=== PATIENT | male | born 1965 | race Caucasian/White ===

== ENCOUNTER → 2016-11-13 | Outpatient (CLI) | payer BC, OTHER ==
[~2016-11-13] MED LIST: ATOR1TAB19 PO; FISH1000 PO; LEVO150T7 PO; MELO7.5T6 PO; MOVE1TAB PO; OMEP40CA2 PO
--- NOTE | 2016-11-13 10:58 | REP ---
Clinical: Reflux disease. Comparison: none. Technique: PA and lateral. Findings: The mediastinum and cardiac silhouette are normal. The lung hernadez are clear and without acute consolidation, effusion, or pneumothorax. The skeletal structures are intact and normal. Impression: 1. No acute cardiopulmonary process. Signed by Davi Walls MD 11/13/2016 10:49 A
[2016-11-13 11:06] LABS: MEAN CORPUSCULAR HGB CONC 34.9 g/dl (32.0-36.5); RED CELL DISTRIBUTION WIDTH 12.5 % (11.5-14.5); WHITE BLOOD COUNT 6.8 K/mm3 (4.0-10.0)
[2016-11-13 11:07] LABS: INR 0.91
[2016-11-13 11:16] LABS: ALBUMIN 3.7 GM/DL (3.2-5.2); ALBUMIN/GLOBULIN RATIO 1.09 (1.00-1.93); ALKALINE PHOSPHATASE 95 U/L (45-117); ALT/SGPT 79 U/L (12-78); ANION GAP 8 MEQ/L (8-16); AST/SGOT 41 U/L (15-37); BILIRUBIN,TOTAL 0.8 MG/DL (0.2-1.0); BLOOD UREA NITROGEN 18 MG/DL (7-18); CALCIUM LEVEL 8.9 MG/DL (8.5-10.1); CARBON DIOXIDE LEVEL 27 MEQ/L (21-32); CHLORIDE LEVEL 106 MEQ/L (98-107); CREATININE FOR GFR 1.05 MG/DL (0.70-1.30); GLOMERULAR FILTRATION RATE > 60.0 (>56); GLUCOSE, FASTING 82 MG/DL (70-105); POTASSIUM SERUM 4.2 MEQ/L (3.5-5.1); SODIUM LEVEL 141 MEQ/L (136-145); TOTAL PROTEIN 7.1 GM/DL (6.4-8.2)
--- NOTE | 2016-11-13 13:52 | ECGEPIP ---
Stationary ECG Study [facility] Test Date: 2016-11-13 Pat Name: DALIA REGALADO Department: Room: - Gender: M [employer] Associate: GABRIELA : 1965 Requested By: Vikas Jeff Order Number: [id number] Reading MD: Khai Whittington Measurements Intervals Andrews Rate: 62 P: 39 AZ: 174 QRS: -14 QRSD: 97 T: 18 QT: 382 QTc: 390 Interpretive Statements SINUS RHYTHM VOLTAGE CRITERIA FOR LVH No prior tracing for comparison Electronically Signed On 11-13-2016 13:52:29 EDT by Khai Whittington
== END ==
LOC: M ADMPAT 09:31
PROVIDERS: ATTEND Orthopaedic Surgery
DX: M17.9 Osteoarthritis of knee, unspecified (principal)

== ENCOUNTER 2016-11-28 10:52 | Inpatient (IN) | payer BC, OTHER ==
[2016-11-13 10:37] VITALS: BP 126/90
--- NOTE | 2016-11-22 09:51 | HPE ---
DATE OF ADMISSION: 11/28/2016 HISTORY OF PRESENT ILLNESS: This is a pleasant male with continuing symptomatic left knee osteoarthritis. He has consented for a left total knee arthroplasty per Dr. Tomer Espinoza. Medical optimization was scheduled with Dr. Fatima last Sunday. I am awaiting optimization note. X-rays are consistent with advanced osteoarthritis. ALLERGIES: None known to drugs. MEDICATIONS (includes): - omeprazole 40 mg one pill twice daily - levothyroxine 115 mcg one pill daily - atorvastatin 10 mg one pill daily - meloxicam 7.5 mg one pill twice daily - Move Free two pills daily - fish oil two pills daily MEDICAL PROBLEM LIST (includes): 1. osteoarthritis. 2. Gastroesophageal reflux disease. 3. Thyroid disease. 4. Hypercholesteremia. SURGICAL HISTORY (positive for): 1. Left knee arthroscopic procedure. 2. A testicle removed. SOCIAL HISTORY: He does not smoke and denies excessive ethanol intake. FAMILY HISTORY: Positive for heart disease, hypertension and cancer. REVIEW OF SYSTEMS: The patient denies chest pain, shortness of breath, dyspnea on exertion, fever, chills, malaise, upper respiratory or urinary tract symptoms. PHYSICAL EXAMINATION: Height is 68 inches, weight 180, temperature 97.6. He is a pleasant well-developed, well-nourished white male in no acute distress. He is alert and oriented times three. Mood and affect are appropriate. He is ambulating with favoring of the left lower extremity. No gross antalgia about the left knee. The left knee examined and not effused, ecchymotic or erythematous and benign and noninfectious looking. He has a left knee varus osteoarthritic alignment with positive medial joint line tenderness and crepitance about the knee through flexion and extension. It is otherwise stable about the collateral ligaments. Patellar and quad tendons without palpable defects. Patellofemoral joint (PFJ) is congruent, static and dynamic. No popliteal fossa mass or pain. Left hip range of motion is not limited or irritable through internal or external range of motion. No palpable defects or pain about the patella or quad tendons. He could do a straight leg raise. Compartments of his left lower extremity are soft, nontender to palpation and grossly intact to light touch. Negative calf tenderness, Homans' sign or palpable cords. LABS: Were reviewed. Nasal and sinus culture showed moderate Staphylococcus aureus which will be treated with Bactroban and Hibiclens wash. Electrocardiogram (EKG) as read by Dr. Khai Whittington showed sinus rhythm. Chest x-ray with no acute cardiopulmonary process as read by Dr. Walls on 11/13/2016. AST/SGOT was 41. ALT/SGPT 79. Remaining labs were unremarkable. Urine culture no growth. IMPRESSION: 1. Symptomatic left knee osteoarthritis. 2. The patient consented for a left total knee arthroplasty per Dr. Tomer Espinoza. 3. Medical optimization was performed last Sunday by Dr. Fatima, we awaiting his clearance note. 4. On-call to operating room (OR), 2 grams IV Kefzol in OR. 5. Sequential compression device (SCD) and thromboembolic deterrent stockings (TEDS) in OR. 6. Bactroban and Hibiclens wash per positive moderate nasal and sinus Staphylococcus. MTDD
[~2016-11-28] VITALS: Ht 172.7 cm; Wt 81.7 kg
[2016-11-28] MEDS ORDERED: LR 1,000 ML IV SCH ×3 (11:00→16:15)
[2016-11-28] MEDS ORDERED: ceFAZolin 2 GM/D5W 50 ML IV BAG (J0690) As Ordered ONE (11:08)
[2016-11-28] MEDS ORDERED: ACETAMINOPHEN 500 MG TAB PO ONE (11:15)
[2016-11-28] MEDS ORDERED: ONDANSETRON 4MG/2ML VIAL (J2405) As Ordered ONE (12:18)
[2016-11-28] MEDS ORDERED: fentaNYL 100 MCG/2 ML INJECTION (J3010) As Ordered ONE ×3 (12:18→13:27)
[2016-11-28] MEDS ORDERED: LIDOCAINE 2% INJ 100 MG/5 ML SDV (FOR ANES.) As Ordered ONE (12:18)
[2016-11-28] MEDS ORDERED: MIDAZOLAM INJ 2 MG/2 ML VIAL (J2250) As Ordered ONE ×2 (12:18→12:27)
[2016-11-28] MEDS ORDERED: PROPOFOL 500 MG/50 ML VIAL As Ordered ONE (12:19)
[2016-11-28] MEDS ORDERED: ceFAZolin 1GM INJ (J0690) As Ordered ONE (12:29)
[2016-11-28] MEDS ORDERED: TRANEXAMIC ACID 100 MG/ML 10ML VIAL As Ordered ONE (12:30)
[2016-11-28] MEDS ORDERED: BUPIVACAINE HCL 0.5% 10 ML VIAL As Ordered ONE (12:31)
[2016-11-28] MEDS ORDERED: EPINEPHrine INJ 1 MG/ML 1ML AMP As Ordered ONE (12:31)
[2016-11-28] MEDS ORDERED: MIDAZOLAM INJ 2 MG/2 ML VIAL (J2250) IV ONE (13:00)
[2016-11-28] MEDS ORDERED: fentaNYL 100 MCG/2 ML INJECTION (J3010) IV ONE (13:00)
[2016-11-28] MEDS ORDERED: BUPIVACAINE HCL 0.25% 10 ML VIAL As Ordered ONE (13:27)
[2016-11-28] MEDS ORDERED: BUPIVACAINE HCL 0.25% 30 ML VIAL As Ordered ONE (13:27)
[2016-11-28] MEDS ORDERED: METOCLOPRAMIDE INJ 10MG/2ML VIAL (J2765) As Ordered ONE (14:27)
[2016-11-28] MEDS ORDERED: dexameTHASONE 4 MG/ML 1ML VIAL (J1100) As Ordered ONE (14:29)
[2016-11-28] MEDS ORDERED: MORPHINE 1MG/ML IN 0.9% NACL 100ML IV BAG As Ordered ONE (15:36)
[2016-11-28] MEDS ORDERED: FLEET ENEMA PR PRN (16:15)
[2016-11-28] MEDS ORDERED: METOCLOPRAMIDE INJ 10MG/2ML VIAL (J2765) IV PRN (16:15)
[2016-11-28] MEDS ORDERED: MEPERIDINE INJ 25 MG/ML VIAL (J2175) IV PRN (16:15)
[2016-11-28] MEDS ORDERED: fentaNYL 100 MCG/2 ML INJECTION (J3010) IV PRN (16:15)
[2016-11-28] MEDS ORDERED: PERCOCET 5MG/325MG TAB PO PRN (16:15)
[2016-11-28] MEDS ORDERED: ONDANSETRON 4MG/2ML VIAL (J2405) IV PRN ×2 (16:15→16:30)
[2016-11-28] MEDS ORDERED: PATIENT IS CURRENTLY ON AN ON-Q PAIN BUSTER PAIN RELIEF SYSTEM XX SCH (16:15)
[2016-11-28] MEDS ORDERED: ACETAMINOPHEN TAB 650MG DOSE (2X325MG) PO PRN (16:15)
[2016-11-28] MEDS ORDERED: EPIDURAL/PCA KEYS XX PRN (16:30)
[2016-11-28] MEDS ORDERED: MORPHINE 1MG/ML IN 0.9% NACL 100ML IV BAG IV PRN (16:30)
[2016-11-28] MEDS ORDERED: NALOXONE INJ 0.4 MG/1 ML VIAL (J2310) IV PRN (16:30)
[2016-11-28] MEDS ORDERED: NALBUPHINE HCL 10 MG/ML AMP (J2300) IV PRN (16:30)
[2016-11-28] MEDS ORDERED: diphenhydrAMINE INJ 50MG/ML VIAL (J1200) IV PRN (16:30)
[2016-11-28] MEDS ORDERED: WARFARIN SOD 5 MG TAB PO SCH (17:00)
--- NOTE | 2016-11-28 17:06 | RO ---
DATE OF PROCEDURE: 11/28/2016 PREPROCEDURE DIAGNOSIS: Left knee degenerative arthritis. POSTPROCEDURE DIAGNOSIS: Left knee degenerative arthritis. OPERATIVE PROCEDURE: Left total knee arthroplasty using a size 4 cruciate retaining femoral component with a size 4 tibial tray with a 10 mm rotating platform polyethylene insert and a 38 mm polyethylene button. All components were cemented. Prosthesis made by [employer], is a PFC knee. SURGEON: Vikas Espinoza MD SHEET METAL TECHNICIAN: Mr. Thomas Tellez ANESTHESIA: Spinal with left femoral nerve block. SPECIMENS: Joint surface. ESTIMATED BLOOD LOSS: Less than 30 mL. COMPLICATIONS: None. DESCRIPTION OF PROCEDURE: Antibiotics were given intravenously preoperatively and a successful spinal and left femoral nerve block anesthetic was established. A tourniquet was placed in the left upper thigh and not inflated. The left lower extremity was prepped and draped in the usual sterile fashion. Leg elevated and after an appropriate time out, the tourniquet was inflated for 66 minutes. A longitudinal incision was then made for a medial parapatellar approach to the knee. Bovie cautery was used to coagulate crossing vessels and then a medial peripatellar arthrotomy was performed. Then, we subperiosteal dissected around the proximal medial portion of the tibia plateau, then everted the patella and flexed the knee, placed the drill down the center of the femoral canal, then the intramedullary aram with the distal femoral cutting jig was inserted, set at 5 degrees valgus cut at 10 mm resection level for a left knee. The jig was pinned into position and then the distal femoral cut performed. AP sizing jig measured between a 3 and a 4, but he has a very large wide femur, so I felt a 4 fit best for medial and lateral width reasons and so I set the AP size and then pinned the 3 degrees external rotation device in place, followed by the four-in-one block. Then we performed the anterior-posterior chamfer cuts taking great care to protect the surrounding soft tissues. We then exposed the proximal tibia and used the extramedullary alignment jig to estimate being parallel to the mechanical axis of the tibia. He had a significant lateral proximal bowing and varus alignment in his lower extremity, but we centered it on the ankle. We referenced off the medial tibial condyle at 4 mm and the block was pinned into position. Then the aram was used for secondary check and it appeared to be parallel to the mechanical axis. The proximal tibia osteotomy was then performed and then we placed the laminar documentation designer laterally and performed completion medial meniscectomy with debridement of the posterior osteophytes, then placed the laminar documentation designer medially and performed a completion lateral meniscectomy and debridement of posterolateral osteophytes. The AP sizing jig was then placed and the 10 fit actually quite nicely with excellent balance between the flexion and the extension joint space with good stability varus to vagus stress testing. He had full extension. We then exposed the proximal tibia. There was a little bit of a rock noted, so I did try to tweak the proximal tibial plateau osteotomy to make sure it was completely level. I did reinsert the tibial jig and used the aram once again to be sure I was completely parallel to the mechanical axis and then resurfaced the proximal tibia and it this helped correct the rocking such that now the tibial plate was flush. We pinned it in position followed by the reamer and broach. We used a size 4 and then placed the polyethylene, then the real trial femoral component, it fit very nicely. Brought the knee to extension, everted the patella. Performed a patellar osteotomy, sized for a 38 button. The lug holes were drilled, the patellofemoral tracking with the prosthesis in position was anatomic. There was a significant amount of snapping over the posterolateral joint line and then on further inspection, there was quite a bit of medial and lateral overhang of the femur, again as mentioned earlier, he has a very wide femur and thus I used a small osteotome to debride the osteophytes off the lateral femoral edge and this eliminated that catching, snapping sensation over the lateral aspect of the knee. We then drilled the lug holes through the femur and removed all the trial components and my microbiology lab assistant Mr. Thomas Tellez mixed the cement on the back table as I prepared the bony surfaces for cementing with a copious amount of pulsatile lavage irrigant solution. Mr. Tellez was also critical to the success of the procedure by helping to close the wound, prepare the patient, help to retract the soft tissues and manipulate the knee several times throughout the operation, so I could perform the operation smoothly and efficiently. I then, after all the bony surfaces were thoroughly dried, I cemented the tibial tray, removed excess cement, cemented in place the polyethylene then cemented the femoral component, removed excess cement and brought the knee to extension, everted the patella, and cemented the patellar component, held it with a clamp and then removed all the excess cement, and held that position in extension until the cement had hardened. As we were waiting for that, we copiously pulsatile lavage irrigated out the knee joint once again, and instilled the Tranexamic acid. We then began closing the apex of the wound with interrupted #1 PDS sutures times two in the apex, then the medial peripatellar area was closed with #1 PDS suture, then running double-armed #1 PDS Stratafix was used to close the capsule, then the tourniquet was released. We copiously irrigated once again, placed the PainBuster catheter. Deep subdermal tissues were closed with interrupted #2-0 PDS sutures, skin was closed with tg, covered by Adaptic dry sterile bulky dressing. He was transferred to the recovery room in stable condition. There were no intraoperative complications.
[2016-11-28 17:11] LABS: MEAN CORPUSCULAR HEMOGLOBIN 31.4 pg (27.0-33.0); MEAN CORPUSCULAR HGB CONC 36.3 g/dl (32.0-36.5); MEAN CORPUSCULAR VOLUME 86.6 fl (80.0-96.0); RED CELL DISTRIBUTION WIDTH 12.2 % (11.5-14.5); WHITE BLOOD COUNT 9.4 K/mm3 (4.0-10.0)
[2016-11-28 17:15] VITALS: BP 132/88
[2016-11-28 17:23] LABS: ANION GAP 6 MEQ/L (8-16); BLOOD UREA NITROGEN 16 MG/DL (7-18); CALCIUM LEVEL 8.9 MG/DL (8.5-10.1); CARBON DIOXIDE LEVEL 28 MEQ/L (21-32); CHLORIDE LEVEL 104 MEQ/L (98-107); CREATININE FOR GFR 1.07 MG/DL (0.70-1.30); GLOMERULAR FILTRATION RATE > 60.0 (>56); GLUCOSE, FASTING 108 MG/DL (70-105); MAGNESIUM LEVEL 2.1 MG/DL (1.8-2.4); POTASSIUM SERUM 4.7 MEQ/L (3.5-5.1); SODIUM LEVEL 138 MEQ/L (136-145)
[2016-11-28 17:45] VITALS: BP 141/86
[2016-11-28] MEDS: LR 1,000 ML IV SCH (18:01)
[2016-11-28 18:45] VITALS: BP 133/90
[2016-11-28 19:45] VITALS: BP 130/83
[2016-11-28 20:45] VITALS: BP 128/84
--- NOTE | 2016-11-28 20:53 | CR.PDOC ---
[facility] Consultation Consultation DATE OF CONSULTATION: 11/28/16 PRIMARY CARE PHYSICIAN: Dr. Fatima ATTENDING PHYSICIAN: Dr. Espinoza REASON FOR CONSULTATION/CHIEF COMPLAINT: Severe OA HISTORY OF PRESENT ILLNESS: . This is a 52-year-old male past history of severe osteoarthritis, hypothyroidism , GERD, hyperlipidemia who presents for an elective left total knee repair secondary to severe history arthritis. Patient denies chest pain/shortness of breath/palpitations. No nausea/vomiting/ abdominal pain. Patient denies any complaints. We have been consulted for medical comanagement. ALLERGIES: Please see below. HOME MEDICATIONS: Please see below. PAST MEDICAL HISTORY: As per [facility] PAST SURGICAL HISTORY: Left knee arthroscopic repair of meniscal tear, testicular resection. FAMILY HISTORY: Noncontributory SOCIAL HISTORY: Denies tobacco, alcohol, illicit drug use. REVIEW OF SYSTEMS: HEENT: Denies sore throat/headache CARDIOVASCULAR: Denies chest pain/palpitations RESPIRATORY: Denies shortness of breath/cough GASTROINTESTINAL: denies nausea/vomiting GENITOURINARY: Denies dysuria/urinary urgency. MUSCULOSKELETAL: Denies myalgias/arthralgias NEUROLOGICAL: Denies any focal weakness PHYSICAL EXAMINATION: Vitals: (see below) General: No acute distress, laying comfortably in bed. HEENT: Moist mucous membranes. Neck: No JVD or lymphadenopathy Cardiac: RRR, No murmurs Pulm: Clear to auscultation b/l. No wheezing, rhonchi Abd: NT/ND + BS Ext: No edema or cyanosis. Left knee in Raul wrap with drain. Distal pulses intact. LABORATORY DATA: Please see below. ASSESSMENT/PLAN: 1. Postop day 0 status post left total knee repair- management per orthopedics. Pain management per orthopedics. 2. Hypothyroidism- continue Synthroid 3. GERD- continue PPI 4. Hyperlipidemia- continue statin DVT prophylaxis- per orthopedics Patient will follow-up by Dr. Samantha Gonzalez during 11/29/16 a 7 AM. Vital Signs/I&O Vital Signs Date Time Temp Pulse Resp B/P (MAP) Pulse Ox O2 Delivery O2 Flow Rate FiO2 11/28/16 18:45 97.9 75 13 133/90 (104) 97 Nasal Cannula 2.0 Laboratory Data Labs 24H Laboratory Tests 2 11/28/16 16:48: Prothrombin Time 13.3, Prothromb Time International Ratio 1.00 11/28/16 16:49: Anion Gap 6L, Glomerular Filtration Rate > 60.0, Blood Urea Nitrogen 16, Creatinine 1.07, Sodium Level 138, Potassium Level 4.7, Chloride Level 104, Carbon Dioxide Level 28, Calcium Level 8.9, Magnesium Level 2.1 CBC/BMP Laboratory Tests 11/28/16 16:49 Red Blood Count 4.77, Mean Corpuscular Volume 86.6, Mean Corpuscular Hemoglobin 31.4, Mean Corpuscular Hemoglobin Concent 36.3, Red Cell Distribution Width 12.2 , Calcium Level 8.9 Allergies Coded Allergies: No Known Allergies (Unverified , 11/28/16) Home Medications Scheduled (Move Free Joint Health Ad) 1 Tab Tab, 2 TAB PO DAILY, (Reported) Atorvastatin Calcium (Atorvastatin Calcium) 10 Mg Tab, 10 MG PO DAILY, (Reported ) Fish Oil (Fish Oil) 1,000 Mg Cap, 2,000 MG PO QHS, (Reported) Levothyroxine Sodium (Synthroid) 150 Mcg Tab, 150 MCG PO DAILY, (Reported) Meloxicam (Meloxicam) 7.5 Mg Tab, 7.5 MG PO BID, (Reported) Omeprazole (Omeprazole) 40 Mg Cap, 40 MG PO BID, (Reported) KAMERON JORGE MD Nov 28, 2016 20:53
[2016-11-28] MEDS: OMEPRAZOLE 20 MG CAP PO SCH (21:22)
[2016-11-28 21:45] VITALS: BP 116/71
[2016-11-29 02:00] VITALS: BP 121/73
[2016-11-29] MEDS: LR 1,000 ML IV SCH (04:45)
[2016-11-29] MEDS: LEVOTHYROXINE 0.15 MG TAB (150 MCG) PO SCH (05:46)
[2016-11-29 06:00] VITALS: BP 119/73
[2016-11-29] MEDS ORDERED: ONDANSETRON 4 MG TAB (S0181) PO PRN (06:45)
[2016-11-29] MEDS ORDERED: PERCOCET 5MG/325MG TAB PO PRN (06:45)
[2016-11-29 07:22] LABS: MEAN CORPUSCULAR HEMOGLOBIN 30.3 pg (27.0-33.0); MEAN CORPUSCULAR HGB CONC 35.2 g/dl (32.0-36.5); MEAN CORPUSCULAR VOLUME 86.2 fl (80.0-96.0); RED CELL DISTRIBUTION WIDTH 12.5 % (11.5-14.5)
[2016-11-29 07:26] LABS: INR 1.13
[2016-11-29 07:38] LABS: ANION GAP 6 MEQ/L (8-16); BLOOD UREA NITROGEN 15 MG/DL (7-18); CALCIUM LEVEL 8.3 MG/DL (8.5-10.1); CARBON DIOXIDE LEVEL 30 MEQ/L (21-32); CHLORIDE LEVEL 99 MEQ/L (98-107); CREATININE FOR GFR 1.14 MG/DL (0.70-1.30); GLOMERULAR FILTRATION RATE > 60.0 (>56); GLUCOSE, FASTING 118 MG/DL (70-105); POTASSIUM SERUM 3.8 MEQ/L (3.5-5.1); SODIUM LEVEL 135 MEQ/L (136-145)
[2016-11-29] MEDS: PERCOCET 5MG/325MG TAB PO PRN ×4 (07:39→20:11)
[2016-11-29] MEDS: MOM 30ML SUSPENSION UDC PO SCH (08:42)
[2016-11-29] MEDS: ATORVASTATIN 10 MG TAB PO SCH (08:42)
[2016-11-29] MEDS: OMEPRAZOLE 20 MG CAP PO SCH ×2 (08:42→20:10)
[2016-11-29] MEDS: SENOKOT S TAB PO SCH ×2 (08:42→20:10)
[2016-11-29] MEDS: MIRALAX *UNIT DOSE* 17GM PACKET PO SCH (08:43)
[2016-11-29 10:00] VITALS: BP 130/80
--- NOTE | 2016-11-29 11:40 | REP ---
LEFT KNEE SERIES: Two views. HISTORY: Check placement post arthroplasty. COMPARISON STUDY: April 2008. FINDINGS: The patient is status post left knee arthroplasty. AP and lateral views demonstrate that the femoral, tibial and patellar components are well aligned. Anterior soft tissue swelling and some subcutaneous emphysema are seen. Anterior skin tg and a pain control catheter system are noted. Signed by Gene Farmer MD 11/29/2016 01:38 P
[2016-11-29 14:00] VITALS: BP 138/85
[2016-11-29] MEDS ORDERED: WARFARIN SOD 5 MG TAB PO ONE (17:00)
[2016-11-29 20:15] VITALS: O2SAT 95
[2016-11-29 22:00] VITALS: BP 164/82
[2016-11-30] MEDS: PERCOCET 5MG/325MG TAB PO PRN ×6 (00:05→20:52)
[2016-11-30] MEDS: LEVOTHYROXINE 0.15 MG TAB (150 MCG) PO SCH (05:46)
[2016-11-30 06:00] VITALS: BP 135/95
[2016-11-30 07:36] LABS: MEAN CORPUSCULAR HEMOGLOBIN 29.7 pg (27.0-33.0); MEAN CORPUSCULAR HGB CONC 34.7 g/dl (32.0-36.5); MEAN CORPUSCULAR VOLUME 85.6 fl (80.0-96.0); RED CELL DISTRIBUTION WIDTH 12.5 % (11.5-14.5); WHITE BLOOD COUNT 15.1 K/mm3 (4.0-10.0)
[2016-11-30 07:46] LABS: INR 1.24
[2016-11-30 07:49] LABS: ANION GAP 7 MEQ/L (8-16); BLOOD UREA NITROGEN 13 MG/DL (7-18); CALCIUM LEVEL 8.9 MG/DL (8.5-10.1); CARBON DIOXIDE LEVEL 26 MEQ/L (21-32); CHLORIDE LEVEL 97 MEQ/L (98-107); CREATININE FOR GFR 1.04 MG/DL (0.70-1.30); GLOMERULAR FILTRATION RATE > 60.0 (>56); GLUCOSE, FASTING 131 MG/DL (70-105); POTASSIUM SERUM 4.2 MEQ/L (3.5-5.1); SODIUM LEVEL 130 MEQ/L (136-145)
[2016-11-30] MEDS ORDERED: COUM2.5T11 PO (08:38)
[2016-11-30] MEDS ORDERED: PERC5TAB6 PO (08:38)
[2016-11-30] MEDS: MOM 30ML SUSPENSION UDC PO SCH (08:40)
[2016-11-30] MEDS: MIRALAX *UNIT DOSE* 17GM PACKET PO SCH (08:40)
[2016-11-30] MEDS: OMEPRAZOLE 20 MG CAP PO SCH ×2 (08:40→20:51)
[2016-11-30] MEDS: SENOKOT S TAB PO SCH ×2 (08:40→20:51)
[2016-11-30] MEDS: ATORVASTATIN 10 MG TAB PO SCH (08:40)
[2016-11-30] MEDS ORDERED: ENOXAPARIN 40 MG/0.4 ML SYRINGE (J1650) SC ONE (09:00)
--- NOTE | 2016-11-30 09:01 | IPNPDOC ---
Subjective Date Seen The patient was seen on 11/30/16. Subjective Chief Complaint/HPI The patient is a 51-year-old male admitted with a reason for visit of Arthritis Left Knee. Events since last encounter pt seen and examined, doing well, no overnight events, pt had a low grade temp yesterday, he denies any chest pain, shortness of breath, cough, no nausea or vomiting Objective Physical Examination General Exam: Positive: No Acute Distress Eye Exam: Positive: PERRLA, Conjunctiva & lids normal Neck Exam: Positive: Supple Chest Exam: Positive: Clear to auscultation Heart Exam: Positive: Rate Normal Abdomen Exam: Positive: Normal bowel sounds, Soft Extremity Exam: Negative: Clubbing, Cyanosis, Edema Neuro Exam: Positive: Normal Speech, Cranial Nerves 3-12 NL Assessment /Plan Problems (1) Osteoarthritis of left knee Status: Acute Problem Text: * s/p arthroplasty on 11/28 * pain control per surgery * pt is working with physical therapy (2) Fever Status: Acute Problem Text: * likely post op reactive process * pt also has a leukocytosis * will monitor one more day * blood cultures pending * tmax of 100.5 on 11/29 (3) Hyponatremia Status: Acute Problem Text: * maybe dilutional * will repeat labs in 4 hours (4) HLD (hyperlipidemia) Status: Chronic Response to Treatment: Stable Problem Text: * continue home medication (5) Hypothyroidism Status: Chronic Response to Treatment: Stable Problem Text: * continue home medication (6) GERD (gastroesophageal reflux disease) Status: Chronic Response to Treatment: Stable Problem Text: * continue home medication Plan/VTE VTE Prophylaxis Ordered?: Yes VS, [facility]&O[facility] Vital Signs/I&O Vital Signs Date Time Temp Pulse Resp B/P (MAP) Pulse Ox O2 Delivery O2 Flow Rate FiO2 11/30/16 08:41 18 11/30/16 06:00 98.6 88 135/95 (108) 97 Room Air 11/29/16 06:00 2.0 I&O- Last 24 Hours up to 6 AM 11/30/16 05:59 Intake Total 1850 ml Output Total 1475 ml Balance 375 ml Laboratory Data 24H LABS Laboratory Tests 2 11/30/16 07:09: Prothrombin Time 15.7H, Prothromb Time International Ratio 1.24, Anion Gap 7L, Glomerular Filtration Rate > 60.0, Blood Urea Nitrogen 13, Creatinine 1.04, Sodium Level 130L, Potassium Level 4.2, Chloride Level 97L, Carbon Dioxide Level 26, Calcium Level 8.9 CBC/BMP Laboratory Tests 11/30/16 07:09 Red Blood Count 4.83, Mean Corpuscular Volume 85.6, Mean Corpuscular Hemoglobin 29.7, Mean Corpuscular Hemoglobin Concent 34.7, Red Cell Distribution Width 12.5 , Calcium Level 8.9 Microbiology Microbiology 11/29/16 Blood Culture, Received Pending 11/29/16 Blood Culture, Received Pending IVORY ARROYO DO Nov 30, 2016 09:01
[2016-11-30] MEDS ORDERED: ROPIvacaine 0.5% 30 ML INJECTION (J2795) ONE (09:45)
[2016-11-30] MEDS ORDERED: LIDOCAINE 1% MDV 20ML VIAL ONE (09:45)
[2016-11-30 12:37] LABS: ANION GAP 3 MEQ/L (8-16); BLOOD UREA NITROGEN 14 MG/DL (7-18); CALCIUM LEVEL 9.1 MG/DL (8.5-10.1); CARBON DIOXIDE LEVEL 32 MEQ/L (21-32); CHLORIDE LEVEL 95 MEQ/L (98-107); CREATININE FOR GFR 1.09 MG/DL (0.70-1.30); GLOMERULAR FILTRATION RATE > 60.0 (>56); GLUCOSE, FASTING 127 MG/DL (70-105); POTASSIUM SERUM 4.2 MEQ/L (3.5-5.1); SODIUM LEVEL 130 MEQ/L (136-145)
[2016-11-30 14:00] VITALS: BP 130/87
[2016-11-30] MEDS ORDERED: WARFARIN SOD 7.5 MG TAB PO ONE (17:00)
[2016-11-30 22:00] VITALS: BP 130/86
[2016-12-01] MEDS: PERCOCET 5MG/325MG TAB PO PRN ×2 (03:40→08:19)
[2016-12-01 06:00] VITALS: BP 111/74
[2016-12-01] MEDS ORDERED: LEVOTHYROXINE 150MCG TABLET (0.15MG) PO SCH (06:00)
[2016-12-01 07:29] LABS: MEAN CORPUSCULAR HEMOGLOBIN 29.9 pg (27.0-33.0); MEAN CORPUSCULAR HGB CONC 34.4 g/dl (32.0-36.5); MEAN CORPUSCULAR VOLUME 86.8 fl (80.0-96.0); RED CELL DISTRIBUTION WIDTH 12.5 % (11.5-14.5); WHITE BLOOD COUNT 14.2 K/mm3 (4.0-10.0)
[2016-12-01 07:36] LABS: ANION GAP 8 MEQ/L (8-16); BLOOD UREA NITROGEN 16 MG/DL (7-18); CALCIUM LEVEL 8.9 MG/DL (8.5-10.1); CARBON DIOXIDE LEVEL 29 MEQ/L (21-32); CHLORIDE LEVEL 95 MEQ/L (98-107); CREATININE FOR GFR 1.18 MG/DL (0.70-1.30); GLOMERULAR FILTRATION RATE > 60.0 (>56); GLUCOSE, FASTING 119 MG/DL (70-105); POTASSIUM SERUM 4.4 MEQ/L (3.5-5.1); SODIUM LEVEL 132 MEQ/L (136-145)
[2016-12-01 08:08] LABS: INR 1.38
[2016-12-01 08:16] LABS: INR 1.33
[2016-12-01] MEDS: SENOKOT S TAB PO SCH (08:17)
[2016-12-01] MEDS: OMEPRAZOLE 20 MG CAP PO SCH (08:18)
[2016-12-01] MEDS: MOM 30ML SUSPENSION UDC PO SCH (08:19)
[2016-12-01] MEDS: MIRALAX *UNIT DOSE* 17GM PACKET PO SCH (08:19)
[2016-12-01] MEDS: ATORVASTATIN 10 MG TAB PO SCH (08:19)
--- NOTE | 2016-12-01 08:34 | IPNPDOC ---
Subjective Date Seen The patient was seen on 12/01/16. Subjective Chief Complaint/HPI The patient is a 51-year-old male admitted with a reason for visit of Arthritis Left Knee. Events since last encounter pt seen and examined, doing well, no overnight events, Constitutional: Denies: Chills, Fever, Night Sweats Objective Physical Examination General Exam: Positive: No Acute Distress Eye Exam: Positive: PERRLA, Conjunctiva & lids normal Neck Exam: Positive: Supple Chest Exam: Positive: Clear to auscultation Heart Exam: Positive: Rate Normal Abdomen Exam: Positive: Normal bowel sounds, Soft Extremity Exam: Negative: Clubbing, Cyanosis, Edema Neuro Exam: Positive: Normal Speech, Cranial Nerves 3-12 NL Assessment /Plan Problems (1) Osteoarthritis of left knee Status: Acute Problem Text: * s/p arthroplasty on 11/28 * pain control per surgery (2) Fever Status: Resolved Problem Text: * likely post op reactive process * pt also has a leukocytosis, but trending down * blood cultures negative for 24 hours * tmax of 100.5 on 11/29 * has been afebrile since that (3) Hyponatremia Status: Acute Response to Treatment: Improving Problem Text: * maybe dilutional * improving * will need to f/u with pcp in 7-10 days (4) HLD (hyperlipidemia) Status: Chronic Response to Treatment: Stable Problem Text: * continue home medication (5) Hypothyroidism Status: Chronic Response to Treatment: Stable Problem Text: * continue home medication (6) GERD (gastroesophageal reflux disease) Status: Chronic Response to Treatment: Stable Problem Text: * continue home medication Plan/VTE VTE Prophylaxis Ordered?: Yes VS, I&O, 24H, [facility] Vital Signs/I&O Vital Signs Date Time Temp Pulse Resp B/P (MAP) Pulse Ox O2 Delivery O2 Flow Rate FiO2 12/01/16 08:19 18 12/01/16 07:48 Room Air 12/01/16 06:00 98.5 92 111/74 (86) 97 11/29/16 06:00 2.0 I&O- Last 24 Hours up to 6 AM 12/01/16 06:00 Intake Total 600 ml Output Total 525 ml Balance 75 ml Laboratory Data 24H LABS Laboratory Tests 2 11/30/16 11:52: Anion Gap 3L, Glomerular Filtration Rate > 60.0, Blood Urea Nitrogen 14, Creatinine 1.09, Sodium Level 130L, Potassium Level 4.2, Chloride Level 95L, Carbon Dioxide Level 32, Calcium Level 9.1 12/01/16 07:00: Anion Gap 8, Glomerular Filtration Rate > 60.0, Blood Urea Nitrogen 16, Creatinine 1.18, Sodium Level 132L, Potassium Level 4.4, Chloride Level 95L, Carbon Dioxide Level 29, Calcium Level 8.9, Prothrombin Time 16.6H, Prothromb Time International Ratio 1.33 12/01/16 07:40: Prothrombin Time 17.1H, Prothromb Time International Ratio 1.38 CBC/BMP Laboratory Tests 11/30/16 11:52 Calcium Level 9.1 12/01/16 07:00 Calcium Level 8.9, Red Blood Count 4.82, Mean Corpuscular Volume 86.8, Mean Corpuscular Hemoglobin 29.9, Mean Corpuscular Hemoglobin Concent 34.4, Red Cell Distribution Width 12.5 Microbiology Microbiology 11/29/16 Blood Culture - Preliminary, Resulted No growth after 24 hours . All specim... 11/29/16 Blood Culture - Preliminary, Resulted No growth after 24 hours . All specim... IVORY ARROYO DO Dec 01, 2016 08:34
--- NOTE | 2016-12-07 19:55 | DSES ---
DATE OF ADMISSION: 11/28/16 DATE OF DISCHARGE: 12/01/16 ATTENDING PHYSICIAN: Tomer Padilla MD ADMITTING DIAGNOSIS: 1. Left knee degenerative arthritis. OTHER DIAGNOSES: 1. Gastroesophageal reflux disease. 2. Thyroid disease. 3. Hypercholesterolemia DISCHARGE DIAGNOSES: 1. Left knee degenerative arthritis, status post left total knee arthroplasty HISTORY OF PRESENT ILLNESS: The patient is a 51-year-old male with continuing left knee pain and stiffness. He failed to improve with conservative measures, so he consented for an elective left total knee arthroplasty with Dr. Espinoza. OPERATION PERFORMED: Left total knee arthroplasty. HOSPITAL COURSE: The patient underwent a left total knee arthroplasty under spinal anesthesia, which was uneventful. He did develop a low-grade fever and hyponatremia during his hospital stay, but he was stable upon discharge. He was up with physical therapy per their protocol, weight bearing as tolerated on the left lower extremity. He was discharged on oral pain medications and will resume his preoperative medications and diet. He will take Coumadin and use his thromboembolic deterrent stockings for 30 days postoperatively to prevent deep vein thrombosis. He will followup in our office in 12 to 14 days for a wound check and staple removal. He is encouraged to contact our office sooner if there is any increased pain, drainage, bleeding, redness, numbness or tingling in his legs, fever greater than 101 degrees or any other concerns. Please see his medical record for addition details. ARMANI
== END 2016-12-01 12:00 | disposition home health service (06) | DRG 302 ==
LOC: M OR 10:52 → M MS5PR 17:00
PROVIDERS: ADMIT Orthopaedic Surgery; ATTEND Orthopaedic Surgery
PROC: 0SRD0J9 Replacement of Left Knee Joint with Synthetic Substitute, Cemented, Open Approach (ICD-10-PCS; principal; 2016-11-28 12:40)
DX: M17.12 Unilateral primary osteoarthritis, left knee (principal); E87.1 Hypo-osmolality and hyponatremia; R50.82 Postprocedural fever; Z79.899 Other long term (current) drug therapy; K21.9 Gastro-esophageal reflux disease without esophagitis; E78.00 Pure hypercholesterolemia, unspecified; E03.9 Hypothyroidism, unspecified; E78.5 Hyperlipidemia, unspecified

== ENCOUNTER → 2016-12-04 | Outpatient (REF) | payer OTHER ==
[~2016-12-04] MED LIST changes: +COUM2.5T11 PO; +PERC5TAB6 PO
[2016-12-04 12:27] LABS: INR 1.35
== END ==
LOC: M SHH 12:00
PROVIDERS: ATTEND Nurse Practitioner Family
DX: Z51.81 Encounter for therapeutic drug level monitoring (principal); Z79.01 Long term (current) use of anticoagulants

== ENCOUNTER → 2016-12-07 | Outpatient (REF) | payer OTHER ==
[2016-12-07 14:08] LABS: INR 1.52
== END ==
LOC: M SHH 11:16
PROVIDERS: ATTEND Nurse Practitioner Family
DX: Z51.81 Encounter for therapeutic drug level monitoring (principal); Z79.01 Long term (current) use of anticoagulants

== ENCOUNTER → 2016-12-11 | Outpatient (REF) | payer OTHER ==
[2016-12-11 10:54] LABS: INR 1.8
== END ==
LOC: M SHH 10:00
PROVIDERS: ATTEND Nurse Practitioner Family
DX: Z51.81 Encounter for therapeutic drug level monitoring (principal); Z79.01 Long term (current) use of anticoagulants

== ENCOUNTER → 2016-12-14 | Outpatient (REF) | payer OTHER ==
[2016-12-14 13:14] LABS: INR 2.32
== END ==
LOC: M SHH 12:19
PROVIDERS: ATTEND Nurse Practitioner Family
DX: Z79.01 Long term (current) use of anticoagulants (principal)

== ENCOUNTER → 2016-12-18 | Outpatient (REF) | payer OTHER ==
[2016-12-18 11:51] LABS: INR 2.02
== END ==
LOC: M LABDRAW1 11:27
PROVIDERS: ATTEND Orthopaedic Surgery
DX: Z96.652 Presence of left artificial knee joint (principal); Z79.01 Long term (current) use of anticoagulants

== ENCOUNTER → 2016-12-21 | Outpatient (REF) | payer OTHER ==
[~2016-12-21] MED LIST changes: -COUM2.5T11 PO; +COUM2.5T17 PO; -MELO7.5T6 PO; +MELO7.5T7 PO; +PERC5TAB12 PO; -PERC5TAB6 PO; +TYLE325C PO
[2016-12-21 14:40] LABS: INR 1.81
== END ==
LOC: M LABDRAW1 13:59
PROVIDERS: ATTEND Orthopaedic Surgery
DX: Z47.1 Aftercare following joint replacement surgery (principal); Z96.652 Presence of left artificial knee joint; Z79.01 Long term (current) use of anticoagulants

== ENCOUNTER → 2016-12-25 | Outpatient (CLI) | payer OTHER ==
[2016-12-25 18:51] LABS: INR 1.49
== END ==
LOC: M WUC 10:35
PROVIDERS: ATTEND Orthopaedic Surgery
DX: Z47.1 Aftercare following joint replacement surgery (principal); Z96.652 Presence of left artificial knee joint; Z79.01 Long term (current) use of anticoagulants

== ENCOUNTER 2017-05-14 10:41 | Day surgery (SDC) | payer BC, OTHER ==
[~2017-05-14] VITALS: Ht 172.7 cm; Wt 79.8 kg
[~2017-05-14 10:41] MED LIST changes: +LIDOCAINE 2% INJ 100 MG/5 ML SDV (FOR ANES.) As Ordered ONE; +PROPOFOL 200 MG/20 ML VIAL As Ordered ONE
[2017-05-14] MEDS: NS 1,000 ML IV ONE (11:30)
--- NOTE | 2017-05-14 12:50 | ROOR ---
Patient Name: Joao Pink Procedure Date: 05/14/2017 12:37 PM Date of : 1965 Age: 52 Room: [facility] Gender: Male Note Status: Finalized Procedure: Upper GI endoscopy Indications: Surveillance for malignancy due to personal history of Duong's esophagus, Heartburn Providers: Glenn HUGHES MD Referring MD: SONI CASTRO MD Requesting Provider: Medicines: Monitored Anesthesia Care Complications: No immediate complications. Procedure: Pre-Anesthesia Assessment: - The heart rate, respiratory rate, oxygen saturations, blood pressure, adequacy of pulmonary ventilation, and response to care were monitored throughout the procedure. The Endoscope was introduced through the mouth, and advanced to the second part of duodenum. The upper GI endoscopy was accomplished without difficulty. The patient tolerated the procedure well. Findings: There were esophageal mucosal changes suspicious for short-segment Duong's esophagus present at the gastroesophageal junction. The maximum longitudinal extent of these mucosal changes was 0.7 cm in length. Mucosa was biopsied with a cold forceps for histology at the gastroesophageal junction. One specimen bottle was sent to pathology. The exam of the esophagus was otherwise normal. The entire examined stomach was normal. The examined duodenum was normal. Impression: - Esophageal mucosal changes suspicious for short-segment (<1cm) Duong's esophagus. Biopsied. - Normal stomach. - Normal examined duodenum. Recommendation: - Await pathology results. - Telephone endoscopist for pathology results in 2 weeks. - Reduce Prilosec (omeprazole) to 20 mg twice a day (script sent) (from 40 twice a day) Glenn Hughes MD Glenn HUGHES MD 05/14/2017 12:50:10 PM This report has been signed electronically. Number of Addenda: 0 Note Initiated On: 05/14/2017 12:37 PM Estimated Blood Loss: Estimated blood loss: none.
--- NOTE | 2017-05-14 13:01 | ROOR ---
Patient Name: Joao Pink Procedure Date: 05/14/2017 12:38 PM Date of : 1965 Age: 52 Room: [facility] Gender: Male Note Status: Finalized Procedure: Colonoscopy Indications: High risk colon cancer surveillance: Personal history of colonic polyps, Last colonoscopy: March 2012 Providers: Glenn LEE MD Referring MD: SONI CASTRO MD Requesting Provider: Medicines: Monitored Anesthesia Care Complications: No immediate complications. Procedure: Pre-Anesthesia Assessment: - The heart rate, respiratory rate, oxygen saturations, blood pressure, adequacy of pulmonary ventilation, and response to care were monitored throughout the procedure. The Colonoscope was introduced through the anus and advanced to the cecum, identified by appendiceal orifice and ileocecal valve. The colonoscopy was performed without difficulty. The patient tolerated the procedure well. The quality of the bowel preparation was good. Findings: The perianal and digital rectal examinations were normal. Mild diverticulosis and small internal hemorrhoids. The entire examined colon appeared normal on direct and retroflexion views. Impression: - Minimal sigmoid diverticulosis and small internal hemorrhoids. - The entire colon is otherwise normal on direct and retroflexion views. - No specimens collected. Recommendation: - Repeat colonoscopy in 10 years for screening purposes. Glenn Lee MD Glenn LEE MD 05/14/2017 1:00:48 PM This report has been signed electronically. Number of Addenda: 0 Note Initiated On: 05/14/2017 12:38 PM Estimated Blood Loss: Estimated blood loss: none.
[2017-05-16 07:48] VITALS: BP 144/89
== END 2017-05-14 13:50 | disposition home or self-care (01) ==
LOC: M OPP 10:41
PROVIDERS: ATTEND Internal Medicine Gastroenterology
DX: Z12.11 Encounter for screening for malignant neoplasm of colon (principal); K57.30 Diverticulosis of large intestine without perforation or abscess without bleeding; K64.0 First degree hemorrhoids; Z86.010 Personal history of colon polyps; K22.70 Barrett's esophagus without dysplasia; R12 Heartburn; K21.9 Gastro-esophageal reflux disease without esophagitis; E03.9 Hypothyroidism, unspecified; E78.5 Hyperlipidemia, unspecified; M17.0 Bilateral primary osteoarthritis of knee; M19.041 Primary osteoarthritis, right hand; M19.042 Primary osteoarthritis, left hand; Z79.2 Long term (current) use of antibiotics; Z79.899 Other long term (current) drug therapy; Z96.652 Presence of left artificial knee joint; Z80.1 Family history of malignant neoplasm of trachea, bronchus and lung

== ENCOUNTER 2018-08-27 07:40 | Day surgery (SDC) | payer OTHER ==
[~2018-08-27] VITALS: Ht 172.7 cm; Wt 83.9 kg
[~2018-08-27 07:40] MED LIST changes: +CELE1CAP4 PO; +FISH100042 PO; +LEVO125T4 PO; -LIDOCAINE 2% INJ 100 MG/5 ML SDV (FOR ANES.) As Ordered ONE; +LR 1,000 ML IV ONE; -PROPOFOL 200 MG/20 ML VIAL As Ordered ONE; +TYLE500T78 PO; +ceFAZolin SOD 1 GM in D5W MINI-BAG PLUS 50 ML IV ONE
[2018-08-27] MEDS ORDERED: ROCURONIUM BROMIDE 50 MG/5 ML VIAL As Ordered ONE (08:21)
[2018-08-27] MEDS ORDERED: KETOROLAC 60 MG/2 ML VIAL (J1885) As Ordered ONE (08:21)
[2018-08-27] MEDS ORDERED: dexameTHASONE 4 MG/ML 1ML VIAL (J1100) As Ordered ONE (08:21)
[2018-08-27] MEDS ORDERED: LIDOCAINE 2% INJ 100 MG/5 ML SDV (FOR ANES.) As Ordered ONE (08:21)
[2018-08-27] MEDS ORDERED: PROPOFOL 200 MG/20 ML VIAL As Ordered ONE ×3 (08:21→10:52)
[2018-08-27] MEDS ORDERED: ONDANSETRON 4MG/2ML VIAL (J2405) As Ordered ONE (08:21)
[2018-08-27] MEDS ORDERED: fentaNYL 100 MCG/2 ML INJECTION (J3010) As Ordered ONE (08:22)
[2018-08-27] MEDS ORDERED: KETAMINE HCL 200 MG/20 ML VIAL As Ordered ONE (08:23)
[2018-08-27] MEDS ORDERED: MIDAZOLAM INJ 2 MG/2 ML VIAL (J2250) As Ordered ONE (08:23)
[2018-08-27] MEDS ORDERED: BUPIVACAINE/EPIN 0.25% 30 ML VIAL As Ordered ONE (09:22)
[2018-08-27] MEDS ORDERED: SCOPOLAMINE 1MG TRANSDERMAL PATCH As Ordered ONE (09:38)
[2018-08-27] MEDS ORDERED: SCOPOLAMINE 1MG TRANSDERMAL PATCH TOP ONE (09:45)
[2018-08-27] MEDS ORDERED: METHOCARBAMOL INJection 1,000 MG, VIAL MATE ADAPTER 1 EACH in NS 250 ML IV ONE (09:45)
[2018-08-27] MEDS ORDERED: SUGAMMADEX SODIUM 500 MG/5 ML VIAL (BRIDION) As Ordered ONE ×2 (10:41→11:25)
--- NOTE | 2018-08-27 11:32 | RO ---
DATE OF PROCEDURE: 08/27/2018 PREOPERATIVE DIAGNOSIS: Right inguinal hernia. POSTOPERATIVE DIAGNOSIS: Right inguinal hernia (indirect with lipoma in the cord). SURGEON: Rigoberto Pozo Jr., MD W[employer] OPERATOR: CHANG Benoit (provided trocar placement, mesh placement, and instrument exchange, as well as abdominal wall closure) ANESTHESIA: General endotracheal anesthesia. ESTIMATED BLOOD LOSS (EBL): Was minimal. FLUIDS: Crystalloid. DISPOSITION: The patient was taken to recovery room awake, alert, and hemodynamically stable. BRIEF OPERATIVE SUMMARY: The patient was taken to the operating room and was given general anesthesia. After adequate anesthesia and preoperative antibiotics were given, the patient was prepped and draped in the usual sterile fashion. Next, a supraumbilical incision was made with skin knife. Blunt dissection was carried down to fascia. Fascia was entered with a Veress needle. Abdomen was insufflated to 15 mm of pressure, and a dilating 10-mm trocar was placed under direct visualization. Two lateral 8-mm trocars were placed, and the camera port was replaced at the umbilicus. Next, the peritoneum was taken down in the right inguinal area using sharp scissors, and then the hernia sac was taken off the cord structures, relatively adherent to this and did make a small rent within the hernia sac itself, and there was a lipoma in the cord. The lipoma in the cord was reduced, transected, and placed in the preperitoneal space after the mesh was laid in this area. In any case, the loose areolar tissue was taken off the posterior aspect of pubis, Waylon's, and the cord structures; and eventually, once this was all well visualized, the mesh was cut to the appropriate size, placed in the preperitoneal space, and pressed into position. This fit quite nicely in this area and covered the indirect as well as direct area. In the direct area, there was a diastasis developing and probably an early direct hernia, as well. In any case, this area was all covered, and the peritoneum was closed over the top of this using 3-0 V-Loc suture. The hernia sac was tacked up along the mobilized peritoneal flap. Trocars were removed, all under direct visualization. 4-0 Vicryl was used to close all incisions. Steri-Strips and a dry sterile dressing were applied. The patient was awakened from the anesthesia, extubated, brought to the recovery room awake, alert, and hemodynamic stable.
[2018-08-27] MEDS ORDERED: METOCLOPRAMIDE INJ 10MG/2ML VIAL (J2765) IV PRN (12:15)
[2018-08-27] MEDS ORDERED: LR 1,000 ML IV SCH (12:15)
[2018-08-27] MEDS ORDERED: HYDROMORPHONE HCL 0.5 MG/ 0.5 ML SYRINGE (J1170 PER 1) IV PRN (12:15)
[2018-08-27] MEDS ORDERED: fentaNYL 100 MCG/2 ML INJECTION (J3010) IV PRN (12:15)
[2018-08-27] MEDS ORDERED: PERCOCET 5MG/325MG TAB As Ordered ONE (12:25)
[2018-08-27] MEDS ORDERED: PERCOCET 5MG/325MG TAB PO PRN (12:30)
[2018-08-27 14:00] VITALS: BP 157/98
== END 2018-08-27 14:05 | disposition home or self-care (01) ==
LOC: M SDC 07:40
PROVIDERS: ATTEND Surgery
DX: K40.90 Unilateral inguinal hernia, without obstruction or gangrene, not specified as recurrent (principal); E03.9 Hypothyroidism, unspecified; K21.9 Gastro-esophageal reflux disease without esophagitis; E78.5 Hyperlipidemia, unspecified; M12.9 Arthropathy, unspecified; R29.898 Other symptoms and signs involving the musculoskeletal system; Z79.899 Other long term (current) drug therapy; Z96.652 Presence of left artificial knee joint; Z87.891 Personal history of nicotine dependence
CPT/HCPCS: 49650; C1781; J0690; J1100; J1885; J2250; J2405; J2765; J3010

== ENCOUNTER → 2019-01-07 | Outpatient (CLI) | payer BC, OTHER ==
[~2019-01-07] MED LIST changes: +ACET650T15 PO; -LR 1,000 ML IV ONE; +MELO7.5T35 PO; -ceFAZolin SOD 1 GM in D5W MINI-BAG PLUS 50 ML IV ONE
--- NOTE | 2019-01-07 09:12 | REP ---
Chest x-ray: Two views. History: Right total knee arthroplasty. . Comparison study: November 18, 2016 . Findings: The lungs are well inflated and free of infiltrate. The pleural angles are sharp. The heart size is normal. Pulmonary vasculature is not increased. No significant bony abnormality is seen. Impression: Negative chest x-ray. Electronically Signed by Gene Farmer MD 01/07/2019 09:03 A
[2019-01-07 09:16] LABS: HEMATOCRIT 48.4 % (42.0-52.0); HEMOGLOBIN 16.6 g/dl (13.5-17.5); MEAN CORPUSCULAR HEMOGLOBIN 29.5 pg (27.0-33.0); MEAN CORPUSCULAR HGB CONC 34.3 g/dl (32.0-36.5); PLATELET COUNT, AUTOMATED 216 10^3/uL (150-450); RED BLOOD COUNT 5.63 10^6/uL (4.30-6.10)
[2019-01-07 09:35] LABS: ERYTHROCYTE SEDIMENTATION RATE 1 mm/hr (0-20)
[2019-01-07 09:38] LABS: INR 1.02; PROTHROMBIN TIME 13.1 SECONDS (11.8-14.0)
[2019-01-07 09:41] LABS: ALBUMIN 4.1 GM/DL (3.2-5.2); ALT/SGPT 64 U/L (12-78); BILIRUBIN,TOTAL 0.7 MG/DL (0.2-1.0); BLOOD UREA NITROGEN 17 MG/DL (7-18); CALCIUM LEVEL 9.4 MG/DL (8.5-10.1); CARBON DIOXIDE LEVEL 29 MEQ/L (21-32); CHLORIDE LEVEL 106 MEQ/L (98-107); CREATININE FOR GFR 1.25 MG/DL (0.70-1.30); GLOMERULAR FILTRATION RATE > 60.0 (>56); GLUCOSE, FASTING 99 MG/DL (70-100); POTASSIUM SERUM 4.4 MEQ/L (3.5-5.1); SODIUM LEVEL 140 MEQ/L (136-145); TOTAL PROTEIN 7.5 GM/DL (6.4-8.2)
--- NOTE | 2019-01-07 20:19 | ECGEPIP ---
[facility] Test Date: 2019-01-07 Pat Name: DALIA REGALADO Department: Room: - Gender: Male [employer] Supervisor: [facility] : 1965 Requested By: Vikas Jeff Order Number: [id number] Reading MD: Khai Whittington Measurements Intervals [place] Rate: 63 P: 49 WV: 171 QRS: QRSD: 86 T: 37 QT: 376 QTc: 385 Interpretive Statements Normal sinus rhythm Left ventricular hypertrophy by Clay criteria Prominent R waves in V2 and V3; consider RVH No change from 11/13/16. Electronically Signed on 01-07-2019 20:19:05 EDT by Khai Whittington
== END ==
LOC: M LAB 08:15
PROVIDERS: ATTEND Orthopaedic Surgery
DX: Z01.810 Encounter for preprocedural cardiovascular examination (principal); M17.11 Unilateral primary osteoarthritis, right knee

== ENCOUNTER 2019-02-04 07:00 | Inpatient (IN) | payer BC, OTHER ==
--- NOTE | 2019-01-29 13:17 | HPE ---
DATE OF ADMISSION: 02/04/2019 ATTENDING PHYSICIAN: Dr. Espinoza CHIEF COMPLAINT: Right knee pain and stiffness. HISTORY: The patient is a 53-year-old male with progressively worsening right knee pain and stiffness. He has failed to improve with conservative measures. He continues to have symptoms with weightbearing activities and activities of daily living. He consented for an elective right total knee arthroplasty with Dr. Espinoza for his continued symptoms. Medical optimization completed with Dr. Prateek Fatima and was reviewed during appointment today. CURRENT MEDICATIONS: - omeprazole 40 mg daily - levothyroxine 125 mcg daily - Celebrex 200 mg daily - atorvastatin 10 mg daily - glucosamine chondroitin - omega-3 ALLERGIES: There are no known drug allergies. CHRONIC MEDICAL CONDITIONS: Gastroesophageal reflux disease, hypothyroid, hyperlipidemia, impaired fasting glucose, irritable bowel syndrome. PAST SURGICAL HISTORY: Nasal orchiectomy, left knee replacement, hernia repair. SOCIAL HISTORY: The patient is and lives at home with spouse. He is a former smoker and quit greater than 20 years ago and occasionally consumes alcohol. Denies any illicit drug use. FAMILY HISTORY: Noncontributory. REVIEW OF SYSTEMS: The patient denies fevers, chills, nausea, vomiting or diarrhea. Denies chest pain, shortness of breath, lightheadedness, dizziness or headaches. Denies abdominal pain. The patient denies any recent upper respiratory or urinary tract infection symptoms. He continues to have right knee pain with weightbearing activities and activities of daily living. PHYSICAL EXAMINATION: GENERAL: Well-nourished, well-developed male in no apparent distress. He is alert, oriented and cooperative. Mood and affect are appropriate. VITAL SIGNS: Blood pressure 120/70, heart rate 88, temperature 97.7, height 69 inches, weight 188 pounds, body mass index (BMI) 27.8. NECK: Supple without lymphadenopathy. HEART: Regular rate and rhythm. LUNGS: Clear to auscultation bilaterally. ABDOMEN: Bowel sounds are present. Abdomen is soft and nontender to palpation. MUSCULOSKELETAL: Right knee does reveal a very minimal amount of diffuse edema. There is tenderness along the medial and lateral joint lines. The patient can extend knee to 5 degrees and flex fully. Right lower extremity strength is 5/5. No hip irritability was elicited with range of motion testing. The patient's calf is soft, nontender to palpation with no palpable cords noted. He is neurovascularly intact distally. LABORATORY DATA: Chest x-ray negative. Right knee x-ray notable for end-stage degenerative changes. EKG normal sinus rhythm with left ventricular hypertrophy and prominent R waves in V2 and V3. Complete blood count: ESR 1, WBCs 7, RBCs 5.63, hemoglobin 16.6, hematocrit 48.4, platelets 216. Prothrombin time 13.1, INR 1.02. Comprehensive metabolic profile: Fasting glucose 99, BUN 17, creatinine 1.25, GFR greater than 60, sodium 140, potassium 4.4, chloride 106, carbon dioxide 29, anion gap decreased at 5, calcium 9.4, AST 32, ALT 64, alkaline phosphatase 84, total bilirubin 0.7, total protein 7.5, albumin 4.1, albumin-globulin ratio 1.21. IMPRESSION: Right knee degenerative arthritis with x-rays notable for end-stage degenerative changes. PLAN: The patient has consented for an elective right total knee arthroplasty with Dr. Espinoza for his continued symptoms. Medical optimization completed with Dr. Fatima. [facility]
[~2019-02-04] VITALS: Ht 172.7 cm; Wt 84.0 kg
[~2019-02-04 07:00] MED LIST changes: +ACETAMINOPHEN 500 MG TAB PO ONE; +LR 1,000 ML IV ONE
[2019-02-04] MEDS ORDERED: MIDAZOLAM INJ 2 MG/2 ML VIAL (J2250) As Ordered ONE ×2 (08:07→08:38)
[2019-02-04] MEDS ORDERED: LIDOCAINE 2% INJ 100 MG/5 ML SDV (FOR ANES.) As Ordered ONE (08:07)
[2019-02-04] MEDS ORDERED: PROPOFOL 200 MG/20 ML VIAL As Ordered ONE ×2 (08:07→10:35)
[2019-02-04] MEDS ORDERED: fentaNYL 100 MCG/2 ML INJECTION (J3010) As Ordered ONE ×2 (08:07→08:38)
[2019-02-04] MEDS ORDERED: ONDANSETRON 4MG/2ML VIAL (J2405) As Ordered ONE (08:07)
[2019-02-04] MEDS ORDERED: BUPIVACAINE HCL 0.25% 10 ML VIAL As Ordered ONE ×2 (08:42→09:27)
[2019-02-04] MEDS ORDERED: BUPIVACAINE HCL 0.25% 30 ML VIAL As Ordered ONE (08:42)
[2019-02-04] MEDS ORDERED: BUPIVACAINE LIPOSOME/PF 1.3% 20ML VIAL (13.3MG/ML)(EXPAREL)(C9290 PER1MG) As Ordered ONE (09:27)
[2019-02-04] MEDS ORDERED: ceFAZolin 1GM INJ (J0690 PER 500MG) As Ordered ONE (09:27)
[2019-02-04] MEDS ORDERED: TRANEXAMIC ACID 100 MG/ML 10ML VIAL As Ordered ONE (09:27)
[2019-02-04] MEDS ORDERED: EPINEPHrine INJ 1 MG/ML 1ML AMP As Ordered ONE (09:27)
[2019-02-04] MEDS ORDERED: BUPIVACAINE HCL 0.25% 10 ML VIAL ONE (10:03)
[2019-02-04] MEDS ORDERED: LIDOCAINE 1% MDV 20ML VIAL ONE (10:03)
[2019-02-04] MEDS ORDERED: BUPIVACAINE/DEXTROSE 0.75% 2 ML AMP As Ordered ONE (10:51)
[2019-02-04] MEDS ORDERED: fentaNYL 100 MCG/2 ML INJECTION (J3010) IV PRN (12:00)
[2019-02-04] MEDS ORDERED: LR 1,000 ML IV SCH (12:00)
[2019-02-04] MEDS ORDERED: PROMETHAZINE INJ 25 MG/ML VIAL (J2550) IV PRN (12:00)
[2019-02-04] MEDS ORDERED: METOCLOPRAMIDE INJ 10MG/2ML VIAL (J2765) IV PRN (12:00)
[2019-02-04] MEDS ORDERED: ACETAMINOPHEN TAB 650MG DOSE (2X325MG) PO PRN (12:00)
[2019-02-04] MEDS ORDERED: FLEET ENEMA PR PRN (12:00)
[2019-02-04] MEDS ORDERED: HYDROMORPHONE HCL 0.5 MG/ 0.5 ML SYRINGE (J1170 PER 1) IV PRN ×3 (12:00→12:15)
[2019-02-04] MEDS: LR 1,000 ML IV SCH (12:00)
--- NOTE | 2019-02-04 14:43 | CR.PDOC ---
General Date of Consultation: Feb 04, 2019 Referring Provider: TANO JUSTICE Attending Physician: JANNY GREENFIELD MD Consultation REASON FOR CONSULTATION/CHIEF COMPLAINT: Medical management. HISTORY OF PRESENT ILLNESS: 53 years old white male with past medical history of multiple medical problems was admitted by orthopedic for elective right total knee arthroplasty which was performed today and patient was observed in the recovery room and later sent to medical floor for physical therapy. Patient surrounded by his family on the floor. Offers no new complaints ALLERGIES: Please see below. HOME MEDICATIONS: Please see below. PAST MEDICAL HISTORY: GERD, hypothyroidism, hyperlipidemia, impaired fasting glucose, irritable bowel syndrome. PAST SURGICAL HISTORY: Left knee arthroplasty, deviated nasal septum removal, orchiectomy, hernia repair. FAMILY HISTORY: Father: Noncontributory Mother: . Noncontributory Siblings: None Children: None Hereditary Diseases: None Unexpected deaths due to medical reasons: None SOCIAL HISTORY: Marital status and/or living arrangements: , lives with Children: Yes Employment: Yes Tobacco use:Ex-smoker, quit 20 years ago ETOH: None Illicit drug use: None IV drug use: None Other relevant social factors: No other factors REVIEW OF SYSTEMS: CONSTITUTIONAL: Normal]. HEENT: NL. CARDIOVASCULAR: NL . RESPIRATORY: NL. GENITOURINARY: Normal. MUSCULOSKELETAL: Normal. GASTROINTESTINAL: NL. SKIN: Normal. NEUROLOGICAL: NL. PSYCHIATRIC: Normal. ENDOCRINE: Normal. HEMATOLOGIC/LYMPHATIC: Normal. ALLERGIC/IMMUNOLOGIC: Normal. PHYSICAL EXAMINATION: VITAL SIGNS: Please see below. GENERAL APPEARANCE: Patient is comfortable, well-built, well-nourished, white male. . HEENT: Pupils are equally reactive to light and accommodations. RESPIRATORY: Clear to A&P. No added sounds. CARDIOVASCULAR: S1, S2, regular, no murmur, thrill or heave. ABDOMEN: , Soft, nontender, bowel sounds present. No organomegaly. EXTREMITIES: No clubbing, cyanosis, edema. NEUROLOGICAL: Or focal motor sensory deficit. PSYCHIATRIC: Within normal limits. LABORATORY DATA: Please see below. ASSESSMENT/PLAN: Status post right TKA. GERD Hypothyroidism Irritable bowel syndrome Degenerative joint disease. Patient is status post right TKA, patient is tolerated procedure very well and has been sent to the medical floor for physical therapy Pain management and DVT prophylaxis as per surgical team's recommendation Physical therapy evaluation has been requested Continue all home medications which include omeprazole, levothyroxine, Celebrex atorvastatin, glucosamine and omega-3 A.m. level work has been ordered including CBC, CMP Thank you for calling this consult, will gladly follow patient with you Vital Signs/I&O Vital Signs Date Time Temp Pulse Resp B/P (MAP) Pulse Ox O2 Delivery O2 Flow Rate FiO2 02/04/19 13:00 97.2 52 14 133/80 (97) 98 02/04/19 11:30 3 Allergies Coded Allergies: No Known Allergies (Unverified , 04/19/17) Home Medications Scheduled Atorvastatin Calcium (Atorvastatin Calcium) 10 Mg Tab, 10 MG PO DAILY, (Reported) Celecoxib (Celebrex) 200 Mg Cap, 200 MG PO DAILY, (Reported) Glucosam/Chond/Hyalu/Cf Borate (Move Free Joint Health Tablet) 1 Tab Tab, 2 TAB PO DAILY, (Reported) Levothyroxine Sodium (Levothyroxine Sodium) 125 Mcg Tab, 125 MCG PO DAILY for 30 Days, #30 (Reported) [place]-3S/Dha/Epa/Fish Oil (Fish Oil Dr 1,000 mg Softgel) 1 Cap Cap, 2,000 MG PO QPM, (Reported) Omeprazole (Omeprazole) 40 Mg Cap, 40 MG PO DAILY, (Reported) Scheduled PRN Acetaminophen (Acetaminophen ER) 650 Mg Tablet.er, 650 MG PO Q6HP PRN for PAIN, (Reported) JANNY GREENFIELD MD Feb 04, 2019 14:43
--- NOTE | 2019-02-04 15:15 | REP ---
Status post TKR. The femoral and tibial components of the knee prosthesis are well seated and well approximated. The alignment is near anatomical. There is expected postoperative soft tissue swelling. There is an anterior midline skin staple line in place. IMPRESSION: Status post TKR. Electronically Signed by Lazaro Baca DO 02/04/2019 05:08 P
[2019-02-04 20:00] VITALS: BP 129/76
[2019-02-04] MEDS ORDERED: PERCOCET 5MG/325MG TAB PO PRN (20:45)
[2019-02-04] MEDS: ONDANSETRON 4MG/2ML VIAL (J2405) IV PRN (20:57)
[2019-02-04] MEDS: PERCOCET 5MG/325MG TAB PO PRN (21:37)
[2019-02-04 22:00] VITALS: BP 132/76
[2019-02-04] MEDS ORDERED: MORPHINE 4 MG/ML 1ML VIAL/SYRINGE (J2270) IV PRN (23:15)
--- NOTE | 2019-02-04 23:32 | RO ---
DATE OF PROCEDURE: 02/04/2019 PREPROCEDURE DIAGNOSIS: Right knee degenerative arthritis. POSTPROCEDURE DIAGNOSIS: Right knee degenerative arthritis. PROCEDURE: Right total knee arthroplasty using a size 7 Attune cemented femoral component with a size 6 tibial tray, 8 mm rotating platform polyethylene insert and a 38 mm polyethylene button. Prosthesis made by [employer]. SURGEON: Dr. Vikas Espinoza DOCUMENTATION COORDINATOR: Ms. Hilda Reed ANESTHESIA: Spinal with right femoral nerve block. COMPLICATIONS: None. ESTIMATED BLOOD LOSS: Less than 20 mL. SPECIMENS: Joint surface. DESCRIPTION OF PROCEDURE: Antibiotics were given intravenously preoperatively and then a successful right femoral nerve block, then a spinal anesthetic was induced. Tourniquet was placed on the right upper thigh and not inflated. Right lower extremity was then carefully prepped and draped in the usual sterile fashion, elevated, after appropriate time-out tourniquet was inflated. Then, a longitudinal incision was made for a medial parapatellar approach to the knee. Bovie cautery was used to coagulate crossing vessels. Subperiosteal dissection around the proximal, medial and lateral tibial plateau was performed. Patella was everted, the knee flexed, the anterior cruciate ligament (ACL) debrided. Drill placed down the center of the femoral canal with the extramedullary aram and the distal femoral cutting jig set at 9 mm resection level, 5 degree valgus for a right knee. Block was pinned into position, distal femoral cut performed. AP sizing jig measured for a size 7. 3 degrees of external rotation dialed in, pinned in place, 2-le-6-block applied, anterior, posterior chamfer cuts performed. A notch jig was then placed on the femur, and the notchplasty performed. We then exposed the proximal tibia, used the extramedullary alignment jig to estimate being parallel to the mechanical axis, referencing off the medial tibial condyle at 4 mm resection level. Block was pinned into position. Secondary check with the extramedullary aram confirmed we appeared to be parallel. Proximal tibial osteotomy performed. Lamina woven paper hat mender placed laterally, and we performed a completion medial meniscectomy and debridement of the posteromedial osteophytes. We then placed the lamina woven paper hat mender medially and performed a completion lateral meniscectomy and debridement of the posterolateral osteophytes. The spacer blocks were trialed and 8 mm fit best with good symmetry both in flexion and extension. We then exposed the proximal tibia and sized for a 6 tibial tray and then the reamer and broach applied, trial placed, trial femoral component fit nicely. The knee was brought into extension, everted the patella, performed a patellar osteotomy, sized for a 38 button. Lug holes drilled, trial placed and patellofemoral tracking was anatomic. We drilled the lug holes then for the femur, removed all the trial components and placed Exparel in the subperiosteal tissues around the distal femur and the proximal tibia. And then Ms. Hilda Reed mixed the cement on the back table as I prepared the bony surfaces for cementing with a copious amount of pulsatile lavage irrigant solution. Ms. Reed was also critical to the success of this difficult surgery by helping to apply appropriate soft tissue retraction, helped to close the wound, helped to prepare the patient, helped to apply appropriate soft tissue retraction and manipulation of the knee such that I could perform the operation smoothly, efficiently and safely. We then cemented the tibial tray, removed excess cement, placed the polyethylene, then cemented the femoral component, removed the excess cement, brought the knee into extension and cemented the patellar button, held it with a clamp and then removed excess cement and held the knee in extension until the cement hardened. As we were awaiting this, we copiously pulsatile lavage irrigated out the knee joint once again, then placed tranexamic acid in the knee joint, then closed the apex of the arthrotomy with two #1 PDS sutures. The medial parapatellar area was closed with #1 PDS suture. We did make sure there was no cement emanating from the femoral tunnel. We then closed the arthrotomy with #1 double-armed Stratafix and then the tourniquet was released. We irrigated between layers, closed the deep subdermal tissues with interrupted #2-0 PDS sutures, skin was closed with tg, covered by an Optifoam, dry sterile bulky dressing. The patient was then transferred to the recovery room in stable condition. There were no intraoperative complications.
[2019-02-05] MEDS: LR 1,000 ML IV SCH (00:30)
[2019-02-05 02:00] VITALS: BP 129/77
[2019-02-05] MEDS: PERCOCET 5MG/325MG TAB PO PRN ×2 (04:02→09:41)
[2019-02-05] MEDS: ONDANSETRON 4MG/2ML VIAL (J2405) IV PRN (04:03)
[2019-02-05 05:32] LABS: HEMATOCRIT 41.3 % (42.0-52.0); HEMOGLOBIN 14.3 g/dl (13.5-17.5); MEAN CORPUSCULAR HEMOGLOBIN 30.2 pg (27.0-33.0); MEAN CORPUSCULAR HGB CONC 34.6 g/dl (32.0-36.5); MEAN CORPUSCULAR VOLUME 87.1 fl (80.0-96.0); PLATELET COUNT, AUTOMATED 197 10^3/uL (150-450); RED BLOOD COUNT 4.74 10^6/uL (4.30-6.10); WHITE BLOOD COUNT 17.6 10^3/uL (4.0-10.0)
[2019-02-05 06:00] VITALS: BP 134/79
[2019-02-05 06:01] LABS: ALBUMIN 3.4 GM/DL (3.2-5.2); ALT/SGPT 46 U/L (12-78); BILIRUBIN,TOTAL 0.5 MG/DL (0.2-1.0); BLOOD UREA NITROGEN 16 MG/DL (7-18); CALCIUM LEVEL 8.5 MG/DL (8.5-10.1); CARBON DIOXIDE LEVEL 27 MEQ/L (21-32); CHLORIDE LEVEL 103 MEQ/L (98-107); CREATININE FOR GFR 1.16 MG/DL (0.70-1.30); GLOMERULAR FILTRATION RATE > 60.0 (>56); GLUCOSE, FASTING 142 MG/DL (70-100); SODIUM LEVEL 139 MEQ/L (136-145); THYROID STIMULATING HORMONE 0.334 uIU/ML (0.358-3.740); TOTAL PROTEIN 6.8 GM/DL (6.4-8.2)
[2019-02-05] MEDS ORDERED: PERC5TAB12 PO (08:03)
[2019-02-05] MEDS ORDERED: XARE10TA PO (08:03)
[2019-02-05] MEDS ORDERED: MIRALAX *UNIT DOSE* 17GM PACKET PO SCH (09:00)
[2019-02-05] MEDS ORDERED: MORPHINE 15 MG SA TAB PO SCH (09:00)
[2019-02-05] MEDS ORDERED: MOM 30ML SUSPENSION UDC PO SCH (09:00)
--- NOTE | 2019-02-05 12:33 | IPNPDOC ---
Subjective Date Seen The patient was seen on 02/05/19. Subjective Chief Complaint/HPI Patient is comfortable offers no new complaints possible discharge today General: Denies: ROS Unobtainable, Chills, Night Sweats, Fatigue, Malaise, Normal Appetite, Other Symptoms Constitutional: Denies: Chills, Fever, Malaise, Night Sweats, Weakness, Fatigue, Weight Loss, Lethargy, Other Eyes: Denies: Pain, Vision change, Conjunctivae inflammation, Eyelid inflammation, Redness, Other ENT: Denies: Head Aches, Ear Pain, Dysphagia, Sinus Congestion, Post Nasal Drip, Sore Throat, Epistaxis, Other Symptoms Skin: Denies: Rash, Lesions, Jaundice, Bruising, Itching, Dry, Breakdown, Nail Changes, Other Pulmonary: Denies: Dyspnea, Cough, Pleuritic Chest Pain, Other Symptoms Cardiovascular: Denies: Chest Pain, Palpitations, Orthopnea, Paroxysmal Noc. Dyspnea, Edema, Lt Headedness, Other Symptoms Gastrointestinal: Denies: Nausea, Vomiting, Abdominal Pain, Diarrhea, Co nstipation, Melena, Hematochezia, Other Symptoms Genitourinary: Denies: Dysuria, Frequency, Incontinence, Hematuria, Retention, Other Symptoms Musculoskeletal: Denies: Neck Pain, Back Pain, Shoulder Pain, Arm Pain, Hand Pain, Leg Pain, Foot Pain, Joint Pain, Muscle Pain, Spasms, Other Symptoms Neurological: Denies: Weakness, Numbness, Incoordination, Change in speech, Confusion, Seizures, Other Symptoms Objective Physical Examination General Exam: Positive: Alert, Cooperative Eye Exam: Positive: PERRLA, Conjunctiva & lids normal ENT Exam: Positive: Atraumatic, Mucous membr. moist/pink Neck Exam: Positive: Supple Chest Exam: Positive: Clear to auscultation, Normal air movement Heart Exam: Positive: Rate Normal, Normal S1, Normal S2 Abdomen Exam: Positive: Normal bowel sounds, Soft Extremity Exam: Positive: Normal pulses Skin Exam: Positive: Nl turgor and temperature Neuro Exam: Positive: Strength at 5/5 X4 ext, Sensation Intact Assessment /Plan Problems (1) Arthritis of right knee Status: Acute Problem Text: Status post right knee ARTHROPLASTY Pain management, physical therapy and DVT prophylaxis as per orthopedics Continue home medications Patient probably will be discharged today (2) Hypothyroidism Status: Chronic Problem Text: Continue home meds Plan/VTE VTE Prophylaxis Ordered?: Yes VS, I&O, 24H, Fishbone Vital Signs/I&O Vital Signs Date Time Temp Pulse Resp B/P (MAP) Pulse Ox O2 Delivery O2 Flow Rate FiO2 02/05/19 10:11 18 02/05/19 06:00 98.0 84 134/79 (97) 92 02/04/19 11:30 3 I&O- Last 24 Hours up to 6 AM 02/05/19 06:00 Intake Total 1720 ml Output Total 2100 ml Balance -380 ml Laboratory Data 24H LABS Laboratory Tests 2 02/05/19 05:18: Nucleated Red Blood Cells % (auto) 0.0, Anion Gap 9, Glomerular Filtration Rate > 60.0, Blood Urea Nitrogen 16, Creatinine 1.16, Sodium Level 139, Potassium Level 4.0, Chloride Level 103, Carbon Dioxide Level 27, Calcium Level 8.5, Aspartate Amino Transf (AST/SGOT) 23, Alanine Aminotransferase (ALT/SGPT) 46, Alkaline Phosphatase 68, Total Bilirubin 0.5, Total Protein 6.8, Albumin 3.4, Albumin/Globulin Ratio 1.00, Thyroid Stimulating Hormone (TSH) 0.334L CBC/BMP Laboratory Tests 02/05/19 05:18 Red Blood Count 4.74, Mean Corpuscular Volume 87.1, Mean Corpuscular Hemoglobin 30.2, Mean Corpuscular Hemoglobin Concent 34.6, Red Cell Distribution Width 12.3, Calcium Level 8.5, Aspartate Amino Transf (AST/SGOT) 23, Alanine Aminotransferase (ALT/SGPT) 46, Alkaline Phosphatase 68, Total Bilirubin 0.5, Total Protein 6.8, Albumin 3.4 JANNY GREENFIELD MD Feb 05, 2019 12:33
[2019-02-05] MEDS ORDERED: RIVAROXABAN 10 MG TAB (XARELTO) PO SCH (18:00)
== END 2019-02-05 13:40 | disposition home or self-care (01) | DRG 302 ==
LOC: M OR 07:00 → M MS5PR 13:35
PROVIDERS: ADMIT Orthopaedic Surgery; ATTEND Orthopaedic Surgery
PROC: 0SRC069 Replacement of Right Knee Joint with Oxidized Zirconium on Polyethylene Synthetic Substitute, Cemented, Open Approach (ICD-10-PCS; principal; 2019-02-04 10:05)
DX: M17.11 Unilateral primary osteoarthritis, right knee (principal); Z79.899 Other long term (current) drug therapy; K21.9 Gastro-esophageal reflux disease without esophagitis; E78.5 Hyperlipidemia, unspecified; Z96.652 Presence of left artificial knee joint; E03.9 Hypothyroidism, unspecified

== ENCOUNTER → 2019-02-26 | Outpatient (REF) | payer OTHER ==
[~2019-02-26] MED LIST changes: -ACETAMINOPHEN 500 MG TAB PO ONE; -LR 1,000 ML IV ONE; -OMEP40CA2 PO; +OMEP40CA97 PO; +XARE10TA PO
== END ==
LOC: M LAB REF 15:37
PROVIDERS: ATTEND Podiatrist
DX: M79.672 Pain in left foot (principal)

== ENCOUNTER → 2020-12-15 | Outpatient (CLI) | payer OTHER ==
[~2020-12-15] MED LIST changes: +OMEP40CA4 PO; -OMEP40CA97 PO
== END ==
LOC: M LABSMTC 11:04
PROVIDERS: ATTEND Anesthesiology
DX: Z01.812 Encounter for preprocedural laboratory examination (principal); Z20.822 Contact with and (suspected) exposure to COVID-19

== ENCOUNTER 2020-12-20 12:47 | Day surgery (SDC) | payer BC, OTHER ==
[~2020-12-20] VITALS: Ht 172.7 cm; Wt 86.2 kg
[~2020-12-20 12:47] MED LIST changes: +NS 1,000 ML IV ONE
[2020-12-20] MEDS ORDERED: propofoL 200 MG/20 ML VIAL As Ordered ONE ×2 (13:39→13:53)
[2020-12-20] MEDS ORDERED: LIDOCAINE 2% 100MG/5ML SDV (FOR ANES.) As Ordered ONE (13:39)
[2020-12-20] MEDS ORDERED: fentaNYL 100 MCG/2 ML INJECTION (J3010) As Ordered ONE (13:40)
--- NOTE | 2020-12-20 14:15 | ROOR ---
Patient Name: Joao Pink Procedure Date: 12/20/2020 1:48 PM Date of : 1965 Age: 55 Room: [facility] Gender: Male Note Status: Finalized Procedure: Upper GI endoscopy Indications: Surveillance for malignancy due to personal history of Duong's esophagus, Heartburn Providers: Glenn Hughes MD Referring MD: SONI CASTRO MD Requesting Provider: Medicines: Monitored Anesthesia Care Complications: No immediate complications. Procedure: Pre-Anesthesia Assessment: - The heart rate, respiratory rate, oxygen saturations, blood pressure, adequacy of pulmonary ventilation, and response to care were monitored throughout the procedure. The Endoscope was introduced through the mouth, and advanced to the second part of duodenum. The upper GI endoscopy was accomplished without difficulty. The patient tolerated the procedure well. Findings: The Z-line was irregular and was found 37 cm from the incisors. Biopsies were taken with a cold forceps for histology. Small Hiatal Hernia. The exam was otherwise without abnormality. Impression: - Z-line irregular, 37 cm from the incisors. Biopsied. - Small Hiatal Hernia. - The examination was otherwise normal. Recommendation: - Use Prilosec (omeprazole) 40 mg PO daily. - Telephone endoscopist for pathology results in 2 weeks. - Repeat upper endoscopy in 3 years for surveillance of Duong's esophagus. Procedure Code(s): --- Professional --- 46029, Esophagogastroduodenoscopy, flexible, transoral; with biopsy, single or multiple Diagnosis Code(s): --- Professional --- K22.70, Duong's esophagus without dysplasia R12, Heartburn K22.8, Other specified diseases of esophagus CPT copyright 2019 [employer]. All rights reserved. The codes documented in this report are preliminary and upon safety grooving machine operator review may be revised to meet current compliance requirements. Glenn Hughes MD Glenn Hughes MD 12/20/2020 2:15:05 PM Electronically signed by Glenn Hughes MD Number of Addenda: 0 Note Initiated On: 12/20/2020 1:48 PM Estimated Blood Loss: Estimated blood loss: none.
[2020-12-20 14:25] VITALS: BP 145/81
== END 2020-12-20 14:26 | disposition home or self-care (01) ==
LOC: M OPP 12:47
PROVIDERS: ATTEND Internal Medicine Gastroenterology
DX: K31.89 Other diseases of stomach and duodenum (principal); K22.8 Other specified diseases of esophagus; K22.70 Barrett's esophagus without dysplasia; R12 Heartburn; Z79.899 Other long term (current) drug therapy; Z88.1 Allergy status to other antibiotic agents; Z87.891 Personal history of nicotine dependence
CPT/HCPCS: 43239; 88305; J3010